=== PATIENT | male | born 1955 | race Caucasian/White ===

== ENCOUNTER 2025-09-30 10:12 | Emergency (ER) | payer MEDICARE, BC | END 2025-09-30 11:31 | disposition home or self-care (01) | LOC: JP.ED 10:12 | DX: S20.213A Contusion of bilateral front wall of thorax, initial encounter (principal); Z79.899 Other long term (current) drug therapy; V00.211A Fall from ice-skates, initial encounter; Y93.51 Activity, roller skating (inline) and skateboarding | CPT/HCPCS: 71046; 71046-26; 99283 ==